=== PATIENT | male | born 1995 | race Two or more races ===

== ENCOUNTER 2025-06-25 16:39 | Emergency (ER) | payer MEDICAID, SELFPAY ==
[2025-06-25 17:09] VITALS: BP 159/99; PULSE 107; RESP 18; TEMP 37.1; O2SAT 97; BMI 36.5
--- NOTE | 2025-06-25 17:14 | XR_ITS ---
Examination: Foot, right, 3 views Technique: AP, oblique, lateral views foot, 3 views Date and time of exam: June 25, 2025 1735 hours INDICATIONS: Angina and fell on the patient's foot today with foot pain. FINDINGS: Acute fracture of ungual tuft tip distal phalanx first digit, comminuted with mild offset No dislocation IMPRESSION: Acute fractures ungual tuft tip distal phalanx first digit
[2025-06-25] MEDS: HYDROcodone/APAP 5/325 TABLET 1 TAB PO (17:39)
[2025-06-25] MEDS: DIPHTH,PERTUSS(ACELL),TET VAC 0.5 ML SYR- ADULT IMi (17:40)
--- NOTE | 2025-06-25 17:52 | EDNOTE_ITS ---
Lower Extremity Injury RME/HPI General Chief Complaint: Ankle/Foot Injury Stated Complaint: Right 1st 2nd toe smashed by motor Time Seen by Provider: 06/25/25 17:06 Arrival date/time: 06/25/25 16:39 29-year-old male presents to the emergency room today complains of right foot pain patient reports that he dropped a motor on his right foot today patient reports injury to right 1st and 2nd digits Limitations: no limitations Related Data Home Medications ?Medication ?Instructions ?Recorded ?Confirmed No Known Home Medications 09/27/1809/08 Previous Rx's ?Medication ?Instructions ?Recorded ibuprofen 800 mg tablet 800 mg PO TID PRN pain #30 t abs 09/28/18 bacitracin 500 unit/gram topical 1 applic topical TID 7 days #28.4 06/25/25 ointment grams cephalexin 500 mg capsule 500 mg PO BID 7 days #14 cap s 06/25/25 hydrocodone 5 mg-acetaminophen 325 1 tab PO BID PRN pa in #10 tabs 06/25/25 mg tablet ibuprofen 800 mg tablet 800 mg PO TID PRN pain #30 t abs 06/25/25 Allergies Allergy/AdvReac Type Severity Reaction Status Date / Time No Known Allergies Allergy Verified 06/25/25 16:44 Review of Systems Review of Systems Systems Reviewed: All systems reviewed, normal except as documented Constitutional Constitutional: Reports system reviewed and no additional complaints, except as documented, Denies fever(s) and Denies headache(s) Eyes Eyes: Reports system reviewed and no additional complaints, except as documented and Denies blurry vision ENT Ears, Nose, Mouth, and Throat: Reports system reviewed and no additional complaints, except as documented, Denies headache(s), Denies nasal congestion and Denies nasal discharge Cardiovascular Cardiovascular: Reports system reviewed and no additional complaints, except as documented, Denies chest pain and Denies dyspnea Respiratory Respiratory: Reports system reviewed and no additional complaints, except as documented, Denies chest congestion, Denies cough and Denies dyspnea Gastrointestinal Gastrointestinal: Reports system reviewed and no additional complaints, except as documented and Denies abdominal pain Musculoskeletal Musculoskeletal: Reports system reviewed and no additional complaints, except as documented, Reports abnormal gait, Reports arthralgias, Denies deformity, Reports joint swelling, Denies numbness, Reports stiffness and Denies tingling Integumentary/Breasts Skin/Breast: Reports system reviewed and no additional complaints, except as documented and Denies rash Neurologic Neurologic: Reports system reviewed and no additional complaints, except as documented, Reports as per HPI, Reports abnormal gait, Denies headache(s), Denies numbness and Denies tingling Past Medical History Past Medical History CARDIAC: Negative Congestive Heart Failure RESPIRATORY: Negative Chronic Obstructive Pulmonary Disease (COPD) GENITOURINARY: Negative Renal Disease ENDOCRINE: Negative Diabetes Mellitus Type 1 or Diabetes Mellitus Type 2 Social History SMOKING STATUS: Current every day smoker ED Exam General Limitations: Present no limitations General appearance: Present alert and in no apparent distress Head Head exam: Present atraumatic, normocephalic and normal inspection Eye Eye exam: Present normal appearance, PERRL and EOMI; Absent conjunctival injection ENT ENT exam: Present normal exam, normal oropharynx and mucous membranes moist Neck Neck exam: Present normal inspection, full ROM and trachea midline Chest Chest inspection: Present normal inspection and symmetric chest wall rise Respiratory Respiratory exam: Present normal lung sounds bilaterally; Absent respiratory distress Cardiovascular Cardiovascular exam: Present regular rate, normal rhythm and normal heart sounds Abdominal Exam Abdominal exam: Present soft and normal bowel sounds Extremities Exam Extremities exam: Present full ROM, tenderness, normal capillary refill and joint swelling; Absent pedal edema or calf tenderness Back Exam Back exam: Present normal inspection and full ROM Neurological Exam Neurological exam: Present alert, oriented X3 and CN II-XII intact Psychiatric Psychiatric exam: Present normal affect and normal mood Skin Skin exam: Present warm, dry, intact and normal color Course Quality Measures none Orders Category Date Time Status TDap [Obtain Tdap Consent] X1 Care 06/25/25 17:14 Completed XR foot comp RT min 3V Stat Exams 06/25/25 17:14 Completed HYDROcodone*/APAP 5/325 [[place] 5/325] Med 06/25/25 17:13 Discontinued 1 tab PO X1 ONE TET,DIP/PERT AC (Adult)-Tdap [Boostrix Adult (Tdap) Med 06/25/25 17:14 Discontinued Vacc] 0.5 ml IMI .ONCE ONE Vital Signs Vital signs: Vital Signs Temperature 98.8 F 06/25/25 17:09 Pulse Rate 107 H 06/25/25 17:09 Respiratory Rate 18 06/25/25 17:09 Blood Pressure 159/99 H 06/25/25 17:09 Pulse Oximetry (%) 97 06/25/25 17:09 Oxygen Delivery Method Room Air 06/25/25 17:09 o2 sat 97% r.a wnl Extremity Injury, Lower MDM Narrative MDM Narrative:: 29-year-old male presents to the emergency room today complains of right foot pain patient reports that he dropped a motor on his right foot today patient reports injury to right 1st and 2nd digits On exam patient is swelling and bruising right foot 1st and 2nd digit the patient has no deformities. Imaging obtained per my capitation patient has fracture of the right great toe and second digit Patient has his own crutches patient placed in [place] wrap given pain medication given a tetanus shot Patient instructed to remain none weightbearing follow-up with PCP in order get a referral to orthopedist worsening symptoms return immediately Patient data External records reviewed:: [facility] previous records Clinical information provided by:: patient Social determinants that could affect healthcare access:: none Patient has the following chronic illnesses:: None How is presenting disease/condition affected by chronic disease/condition?: no chronic disease Evaluation data The following diagnostics were reviewed and interpreted by me:: radiology exam(s) Lab and/or radiology exams considered but not ordered:: Radiology obtain Interpretation Summary: Reviewed by me Medications / Prescriptions Medications or Prescriptions considered but not ordered:: Given Medication administrations:: Medication Administration History Discontinued Medications Hydrocodone Bitart/Acetaminophen (Hydrocodone/Apap 5/325 Tablet) 1 tab PO X1 ONE Stop: 06/25/25 17:14 Last Admin: 06/25/25 17:39 Dose: 1 tab Documented By: Diphtheria/Tetanus/Acell Pertussis (Diphth,Pertuss(Acell),Tet Vac 0.5 Ml Syr- Adult) 0.5 ml IMi .ONCE ONE Stop: 06/25/25 17:15 Last Admin: 06/25/25 17:40 Dose: 0.5 ml Documented By: Given Consultations Consultation(s) initiated? (list below): No Diagnosis Extremity Injury, Lower Differential Diagnosis: other Most likely diagnosis given after review of the tests above:: Toe fracture Admission Indicated Admission indicated?: not indicated Admission Request Was there a request for admission?: No Disposition Plan Disposition Plan: Discharge Discharge Attestation Discharge Attestation: The patient and all family members were given an opportunity to ask questions and understood the discharge instructions. Discharge instructions specifically effects, indications for sooner follow up or return to the emergency department, and the expected course of current diagnosis. Patient condition: Stable Discharge Plan Plan Patient Disposition: HOME (Self Care) Discharge Disposition comment: Stable Prescriptions/Referrals Prescriptions/Med Rec: New bacitracin 500 unit/gram ointment 1 applic topical TID 7 Days Qty: 28.4 0RF ibuprofen 800 mg tablet 800 mg PO TID PRN (Reason: pain) Qty: 30 0RF hydrocodone-acetaminophen 5-325 mg tablet 1 tab PO BID MDD 10 PRN (Reason: pain) Qty: 10 0RF cephalexin 500 mg capsule 500 mg PO BID 7 Days Qty: 14 0RF No Action No Known Home Medications ibuprofen 800 mg tablet 800 mg PO TID PRN (Reason: pain) Qty: 30 0RF Referrals: No Primary/Family,Physician [Primary Care Provider] - 06/26/25 Problem List Clinical Impression: Fracture of phalanx of multiple toes of right foot Patient/Caregiver Discharge Instructions Education Materials: ED Fracture, Foot Additional Instructions: Please follow up with your primary care doctor in the next 24-48hrs for any worsening symptoms return here immediately Print Language: Jordanian Stand Alone Forms: Nga Award Info., Patient Portal Info Letter PA/SECTION CUTTER Supervising Physician PA/SECTION CUTTER Supervising Physician: dr hayes
== END 2025-06-25 18:06 | disposition home or self-care (01) ==
PROVIDERS: Emergency Provider Family Medicine
DX: S92.421A Displaced fracture of distal phalanx of right great toe, initial encounter for closed fracture (principal); W20.8XXA Other cause of strike by thrown, projected or falling object, initial encounter
CPT/HCPCS: 73630; 90471; 90715; 99283; A9270